=== PATIENT | male | born 1985 | race Caucasian/White ===

== ENCOUNTER 2017-11-20 18:49 | Emergency (ER) | payer MEDICAID, SELFPAY ==
[2017-11-20 18:50] VITALS: BP 132/42; PULSE 94; RESP 17; TEMP 36.8; O2SAT 98; BMI 30.1
--- NOTE | 2017-11-20 19:04 | ED.DCSUM_ITS ---
- ER Visit Summary Date of Service: 11/20/17 Chief Complaint: Dental pain History of Present Illness: The patient is a 32 M presents to the emergency department dental pain. Patient had the symptoms off and on for the past month. Over the past 2 days, symptoms worsened. He describes sharp stabbing pain in his left upper jaw. He states he has not seen a dentist in years. He has been taking ibuprofen with some improvement. He denies any fevers or chills. He denies any trauma. He does describe hot and cold sensitivity. Physical Examination: Vital signs reviewed General: Well-nourished, well-developed Head: Normocephalic, atraumatic Eyes: Pupils equal and reactive, extraocular muscles intact Neck, supple, no lymphadenopathy Dental: Patient has cavity of tooth 15. There is some erythema of the gumline. There is no focal abscess. No Xavi angina. No trismus or stridor. Submental space soft. Heart: Regular rate and rhythm Respiratory: No distress, clear bilaterally Abdomen: Soft, nontender, nondistended, no peritoneal signs Back: Nontender Extremities: Nontender, no edema, no cords Skin: Normal color no rash Neuro: Alert and oriented, no focal or lateralizing deficits Test Results: [] Emergency Department Course and Treatment: Patient has evidence of cavity of tooth 15. There is some mild erythema of the gumline. There is no focal abscess. He has no evidence of Xavi angina. I am going to treat the patient with penicillin. He is given outpatient dental resources. I did community health counselor him this is likely going to need formally addressed by dentistry. He will be discharged home. Treatment Plan: [] Disposition: Discharge Impression: Dental cavity with periapical abscess tooth 15 This note was generated with Dat[employer] dictation software. It may contain incorrect words, spelling, and punctuation that were not noted in review of the chart prior to signing ED Disposition - Plan for ED Patient: Chief Complaint: Dental Instructions: ED Cavity Dental Prescriptions: Naproxen [Naprosyn] 500 mg PO BID PRN #20 tab Penicillin V Potassium 500 mg PO 4X/DAY #40 tab Referrals: Sera Noguera MD [Primary Care Provider] -
== END 2017-11-20 19:21 | disposition home or self-care (01) ==
LOC: ED 19:16
PROVIDERS: Emergency Provider Emergency Medicine; Family Provider Family Medicine; PCP Family Medicine
DX: K04.7 Periapical abscess without sinus (principal); K02.9 Dental caries, unspecified; Z72.0 Tobacco use
CPT/HCPCS: 99282

== ENCOUNTER 2017-12-22 10:03 | Emergency (ER) | payer MEDICAID, SELFPAY ==
[2017-12-22 10:04] VITALS: BP 116/42; PULSE 86; RESP 14; TEMP 36.4; O2SAT 100; BMI 29.7
[2017-12-22] MEDS: Naproxen 500 MG Tablet PO (10:21)
--- NOTE | 2017-12-22 10:38 | RAD_ITS ---
STUDY: X-RAY - BILATERAL RIBS REASON FOR EXAM: Male, 32 years old. Injury to left ribs with pain for a few days. TECHNIQUE: 7 view(s) of the ribs. COMPARISON: Chest x-ray dated March 08, 2016 FINDINGS: Normal visualized ribs without a demonstrated fracture. The visualized lungs are clear and expanded. Normal heart, mediastinum and pulmonary mundo. RAD/Ribs Bilat 3V No CXR IMPRESSION: No significant abnormality identified. If the patient remains symptomatic, a repeat rib study in 7-10 days may show healing fractures that are not seen on the initial study. Electronically Signed: Willian Culp MD at 11:16 EDT , Service support ,
--- NOTE | 2017-12-22 11:06 | ED.DCSUM_ITS ---
- ER Visit Summary Date of Service: 12/22/17 Chief Complaint: Left rib pain History of Present Illness: The patient is a 32 M who states he was working on a car when he was holding onto something heavy and it slipped and he leaned forward and the left side of his chest hit his car. He complains of pain in the left rib area. Is worse with breathing and coughing. Denies any other symptoms. He tried ibuprofen at home without any relief. Physical Examination: Vital signs reviewed. HEENT exam unremarkable. Heart is regular rate and rhythm. Lungs clear to auscultation. He has chest tenderness in left anterior axillary line in the upper chest. Abdomen is soft and nontender. Neurologic exam normal Test Results: Chest x-ray reveals no acute findings Emergency Department Course and Treatment: Patient appears to have a contusion to the chest wall. He will be treated with naproxen here at home. He will ice the area and will follow up with his PCP Treatment Plan: [] Disposition: Discharge Impression: Left chest wall contusion This note was generated with [employer] dictation software. It may contain incorrect words, spelling, and punctuation that were not noted in review of the chart prior to signing ED Disposition - Plan for ED Patient: Chief Complaint: Chest Other Referrals: Sera Noguera MD [Primary Care Provider] -
--- NOTE | 2017-12-22 11:18 | ED.DEP ---
ED Disposition - Plan for ED Patient: Disposition: Home or Assisted Living Chief Complaint: Chest Other Instructions: ED Contusion Chest Wall Prescriptions: Naproxen [Naprosyn] 500 mg PO BID PRN #20 tab Referrals: Sera Noguera MD [Primary Care Provider] -
[2017-12-22 12:09] VITALS: BP 118/73; PULSE 68; RESP 17
== END 2017-12-22 12:09 | disposition home or self-care (01) ==
PROVIDERS: Emergency Provider Emergency Medicine; Family Provider Family Medicine; PCP Family Medicine
DX: S20.212A Contusion of left front wall of thorax, initial encounter (principal); W22.8XXA Striking against or struck by other objects, initial encounter; Y93.9 Activity, unspecified; Y92.9 Unspecified place or not applicable; Y99.9 Unspecified external cause status; J45.909 Unspecified asthma, uncomplicated; Z72.0 Tobacco use
CPT/HCPCS: 71110; 99283

== ENCOUNTER 2017-12-30 13:59 | Emergency (ER) | payer MEDICAID, SELFPAY ==
[2017-12-30 14:03] VITALS: BP 119/83; PULSE 79; RESP 16; TEMP 37.1; O2SAT 99; BMI 29.9
--- NOTE | 2017-12-30 16:16 | ED.RN ---
pt was called at 1540 to be taken back to a room. pt was no longer here. Called again at 1617 still not here.
== END 2017-12-30 15:40 | disposition left against medical advice (07) ==
LOC: ED 16:52
PROVIDERS: Emergency Provider Emergency Medicine; Family Provider Family Medicine; PCP Family Medicine
DX: K08.89 Other specified disorders of teeth and supporting structures (principal)

== ENCOUNTER 2022-09-08 07:55 | Emergency (ER) | payer SELFPAY ==
[2022-09-08 07:55] VITALS: BP 146/100; PULSE 116; RESP 14; TEMP 36.2; BMI 30.5
[2022-09-08] MEDS: Oxymetazoline 0.05% 1 SPRAY SPRAY.BTL 2 SPRAY NASAL (08:29)
--- NOTE | 2022-09-08 08:34 | EX.ED.DYSGE1 ---
HPI History of Present Illness Chief Complaint: Nosebleed Narrative Narrative: 37-year-old male presenting with epistaxis from the left nares. Patient states he woke up with this. Patient denies any trauma externally or internally. He states he has not stuck anything in his nose or snorted anything. Patient states he has a history of nosebleeds when he was a kid but has not had this recently. Patient is not on any blood thinners. PFSH PFSH Medical History no medical history Home Medications naproxen 500 mg tablet 500 mg PO BID PRN #20 tabs 12/22/17 [Rx Last Taken Unknown] Allergy/AdvReac Type Severity Reaction Status Date / Time No Known Allergies Allergy Verified 09/08/22 07:55 Surgical History no surgical history Social History Smoking Status: Current every day smoker tobacco type: cigarettes ROS ROS ED Constitutional Constitutional ED: Denies chills, fever(s) or sweats Eyes Eyes: Denies blurry vision or change in vision ENT ENT ED: Reports other Details: Epistaxis ; Denies ear pain or sore throat Cardiovascular Cardiovascular: Denies chest pain, palpitations or racing heartbeat Respiratory/Chest Respiratory/Chest: Denies cough, dyspnea or sputum Gastrointestinal Gastrointestinal: Denies abdominal pain, constipation, diarrhea, nausea or vomiting Genitourinary Genitourinary ED: Denies dysuria, hematuria or urinary frequency Musculoskeletal Musculoskeletal: Denies arthralgias, myalgias or neck pain Integumentary Denies abscess, Abrasions or rash Neurologic Neurologic: Denies headache(s), paresthesias or weakness Psychiatric Psychiatric: Denies anxiety, depression, suicidal ideation or suicidal thoughts Endocrine Endocrinology: Denies polydipsia or polyuria EXAM Physical Exam Const Vital Signs: 09/08/22 07:55 09/08/22 10:08 09/08/22 12:17 Temperature 97.1 F L Temperature Source Temporal Pulse Rate 116 H 81 Respiratory Rate 14 16 18 Blood Pressure 146/100 H 121/79 H Blood Pressure Mean 115 93 Pulse Ox 99 Oxygen Delivery Method Room Air 09/08/22 12:17 Temperature Temperature Source Pulse Rate Respiratory Rate 18 Blood Pressure Blood Pressure Mean Pulse Ox Oxygen Delivery Method Positive well nourished General Appearance ED: cyanotic HEENT Reports moist mucous membranes HEENT Narrative: Steady epistaxis from the left naris. No external trauma. Eyes PERRL and EOMs intact bilaterally General Eye ED: Negative for pale conjunctiva or scleral icterus Resp normal respiratory effort and clear to auscultation bilaterally Cardio regular rate and regular rhythm Neuro oriented x3 and CN's II-XII intact bilaterally MDM MDM MDM Narrative Medical decision making narrative: On review ofPatient presented with left-sided epistaxis. He has been bleeding like this and this will go over sleep. Denies any trauma. Denies snorting anything. Patient has distant history of epistaxis. It is difficult to examine him initially as he is a study trickle of blood from the left naris. I did have him blow all of the clots out of the left side and I did pack the left side with with a cottonball soaked in Afrin. We will let this settle for about 10 minutes and then reevaluate. Patient states that he has not had any significant bleeding relation. The cotton ball was pulled and a large clot was removed. There is a still a little bit of bleeding. Patient was repacked in a similar fashion with father's max. I still cannot obtain a good view with active bleeding. Will reevaluate. On reevaluation the normal was pulled and there was no active bleeding. I did watch the patient for about 5 minutes and he started to have active bleeding. I reevaluated him and I cannot see where he was bleeding from and I presume this is somewhat posterior. Patient was packed with a rapid Rhino and tolerated this well. We will monitor him for short time. If he does well he will be discharged home with follow-up with ENT. On reevaluation the patient is doing well. No active bleeding. He states is able to breathe out of right nare now. No blood in the posterior oropharynx. Impression: 1. epistaxis Lab Data Attestation: I reviewed the patient's lab results. Discharge Plan Triage Chief Complaint: Nosebleed ED Provider: Alvin Ospina Dx/Rx/DC Orders Instructions: Nosebleed Prescriptions: No Action naproxen 500 MG tablet 500 mg PO BID PRN Qty: 20 0RF Primary Care Provider: Care Physician,No Primary Referrals: Kavon Shearer MD [Med Staff - Courtesy Staff] - 3-5 Days Sera Noguera MD [Med Staff - [employer]] - Disposition Disposition: Home, Self Care
[2022-09-08 10:08] VITALS: BP 121/79; PULSE 81; RESP 16; O2SAT 99
[2022-09-08] MEDS: Mixture 30 ML Bottle 10 ML TOPICAL (10:30)
[2022-09-08] MEDS: Silver Nitrate (BKC) 1 EACH TOPICAL (12:05)
[2022-09-08 12:17] VITALS: RESP 18
== END 2022-09-08 12:47 | disposition home or self-care (01) ==
PROVIDERS: Emergency Provider Student in an Organized Health Care Education/Training Program; Visit Provider Student in an Organized Health Care Education/Training Program
DX: R04.0 Epistaxis (principal); F17.210 Nicotine dependence, cigarettes, uncomplicated; Z79.1 Long term (current) use of non-steroidal anti-inflammatories (NSAID)
CPT/HCPCS: 30905; 99282

== ENCOUNTER 2022-09-09 05:44 | Emergency (ER) | payer SELFPAY ==
[2022-09-09 05:45] VITALS: BP 144/85; PULSE 103; RESP 18; TEMP 36.1; O2SAT 97; BMI 28.7
--- NOTE | 2022-09-09 06:33 | EDS_ITS ---
HPI History of Present Illness Chief Complaint: Nosebleed Informant: patient and family Narrative Narrative: Sudden nosebleed right side prior to arrival. Patient seen yesterday in the ED for left-sided epistaxis. He went home with a packing he states he was doing fine was able to sleep. Today bleeding to the right side. He denies digital manipulation. Denies anticoagulants. Denies history of bleeding issues similar in the past. 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 Prior similar symptoms: Yes PFSH PFSH Home Medications NK 09/09/22 [History Last Taken Unknown] Allergy/AdvReac Type Severity Reaction Status Date / Time No Known Allergies Allergy Verified 09/09/22 05:49 Social History Smoking Status: Current every day smoker tobacco type: cigarettes ROS ROS ED Constitutional Constitutional ED: Denies chills, fever(s) or sweats Eyes Eyes: Denies change in vision ENT ENT ED: Reports other Details: Nosebleed ; Denies dysphagia or sore throat Cardiovascular Cardiovascular: Denies chest pain, leg edema, palpitations or racing heartbeat Respiratory/Chest Respiratory/Chest: Denies cough, dyspnea or dyspnea on exertion Gastrointestinal Gastrointestinal: Denies abdominal pain, diarrhea, nausea or vomiting Genitourinary Genitourinary ED: Denies dysuria, hematuria or urinary frequency Musculoskeletal Musculoskeletal: Denies back pain, extremity pain or neck pain Integumentary Denies rash or wounds Neurologic Neurologic: Denies headache(s), paresthesias or weakness EXAM Physical Exam Const Vital Signs: 09/09/22 05:45 Temperature 96.9 F L Temperature Source Temporal Pulse Rate 103 H Respiratory Rate 18 Blood Pressure 144/85 H Blood Pressure Mean 104 Pulse Ox 97 Oxygen Delivery Method Room Air Positive well nourished and well developed General Appearance ED: well developed and NAD HEENT Reports moist mucous membranes HEENT Narrative: Left nare: Merocel dressing was intact. Right nare: Nasal tampon placed by patient. This was removed, dried blood there is no active bleeding. No posterior pharyngeal active bleeding. normocephalic and atraumatic Eyes PERRL, EOMs intact bilaterally and conjunctivae normal General Eye ED: Yes normal appearance of both eyes Neck no lymphadenopathy and supple General: Negative for tenderness Chest Wall Chest: Negative for tenderness Resp normal respiratory effort and normal air movement Effort and Inspection: symmetric chest movement; Negative for respiratory distress Cardio regular rate, regular rhythm and no murmurs Peripheral Pulses: pulses 2+ throughout GI normal to inspection, nondistended, normoactive bowel sounds and non-tender Palpation: Negative for guarding or rebound tenderness present Back/Spine no CVA tenderness and no thoracic nor lumbar tenderness Extremity normal to inspection General Extremety ED: Negative for edema or tenderness General Extremity: Negative for edema Neuro oriented x3 and no sensory deficits noted Sensorium / Orientation: awake and alert Skin no rashes or lesions noted and no wounds MDM MDM MDM Narrative Medical decision making narrative: LobePatient recurrent epistaxis. No trauma for concerns for nasal fracture leading to this. We bleeding out to the right side concerns for more posterior bleed on the left side which is tracking to the right side. There is no active bleeding on the right side when evaluated. I remove the Merocel on the left side, initial clear nasal discharge however noted then slow blood on the left side. Clots were removed from the naris bilaterally. With concerns for left- sided bleed tracking to the right side. I placed 7.5 cm rapid Rhino to the left side with gentle pressure. Multiple reevaluations, initially after placement there was blood from the right side. He was continued monitoring there is no rebleeds on the right side. Work note provided this is concerns of going to work with of nasal packing. He is given follow-up with ENT again. Discussed no blowing of his nose which is dabbing as needed. Return precautions. All questions were answered. Discharge Plan Triage Chief Complaint: Nosebleed ED Provider: León Mcmullen Dx/Rx/DC Orders Clinical Impression: Left-sided epistaxis Instructions: ED Epistaxis (Adult) Prescriptions: No Action NK Primary Care Provider: Care Physician,No Primary Referrals: Kavon Shearer MD [Med Staff - Courtesy Staff] - 3-5 Days Care Physician,No Primary [Primary Care Provider] - Activity Restrictions/Additional Instructions: 7.5 cm rapid Rhino packing to left nare. No active bleeding on the right side. Likely bleeding trickling over to the right side from evaluation yesterday. Maintain for 3 days. Follow-up with ENT for removal and reevaluation. Return if any worsening symptoms. Disposition Disposition: Home, Self Care Discharge Date/Time: 09/09/22 07:01
== END 2022-09-09 07:01 | disposition home or self-care (01) ==
PROVIDERS: Emergency Provider Emergency Medicine; Visit Provider Emergency Medicine
DX: R04.0 Epistaxis (principal); F17.210 Nicotine dependence, cigarettes, uncomplicated
CPT/HCPCS: 30901; 99282

== ENCOUNTER 2022-11-01 14:29 | Emergency (ER) | payer SELFPAY ==
[2022-11-01 14:30] VITALS: BP 144/94; PULSE 108; RESP 16; TEMP 36.6; O2SAT 97; BMI 31.5
--- NOTE | 2022-11-01 14:37 | EKG12_ITS ---
Test Reason : CP Blood Pressure : / mmHG Vent. Rate : 103 BPM Atrial Rate : 103 BPM P-R Int : 156 ms QRS Dur : 092 ms QT Int : 336 ms P-R-T Axes : 060 083 045 degrees QTc Int : 440 ms Poor data quality, interpretation may be adversely affected Sinus tachycardia Incomplete right bundle branch block Borderline ECG Confirmed by ARMANDO PARKER, ASHLEY ([id number]), clinical editor ZAHRA CABRERA ([id number]) on 11/04/2022 12:32:55 P M Referred By: GAUDENCIO/RAVI Confirmed By:MANUEL ROBERTS MD
--- NOTE | 2022-11-01 16:27 | ED.RN ---
CALLED PT'S NAME TO ROOM, NO ANSWER. PT NOT IN DEPT.
== END 2022-11-01 16:00 | disposition left against medical advice (07) ==
LOC: ED 16:47
DX: R07.89 Other chest pain (principal); Z53.21 Procedure and treatment not carried out due to patient leaving prior to being seen by health care provider
CPT/HCPCS: 93005

== ENCOUNTER 2023-04-24 11:18 | Emergency (ER) | payer OTHER, SELFPAY ==
[2023-04-24 11:19] VITALS: BP 146/99; PULSE 108; RESP 18; TEMP 36.4; O2SAT 100
--- NOTE | 2023-04-24 12:40 | EKG12_ITS ---
Test Reason : CP Blood Pressure : / mmHG Vent. Rate : 106 BPM Atrial Rate : 106 BPM P-R Int : 168 ms QRS Dur : 082 ms QT Int : 322 ms P-R-T Axes : 057 084 045 degrees QTc Int : 427 ms Sinus tachycardia Otherwise normal ECG Confirmed by LINDA PARKER, CUONG ([id number]), health editor ZANDRA BALDWIN ([id number]) on 04/25/2023 12:07:23 PM Referred By: Confirmed By:CUONG MCKEON MD
--- NOTE | 2023-04-24 12:40 | ED.VIS.CHEST ---
HPI History of Present Illness Chief Complaint: Chest Pain Informant: patient Narrative Narrative: Intermittent sharp left-sided chest pain prior to arrival. No dyspnea nausea. No radicular symptoms. Denies recent illness or cough. He vapes. Mother had PR at the age of 58, 3 years ago. Denies recent travel surgeries or immobilizations. No history of PE or DVT. reports symptoms subsided currently. Prior Similar Symptoms: No CVD Risk Factors: Positive for Smoking; Negative for Hypertension, Diabetes, Hypercholesterolemia or Family History 1' </=55 PE Risk Factors: Negative for Recent Travel/Surgery, Recent Immobilization or Prior DVT or PE [facility] Home Medications NK 09/09/22 [History Last Taken Unknown] Allergy/AdvReac Type Severity Reaction Status Date / Time No Known Allergies Allergy Verified 04/24/23 11:19 Social History Smoking Status: Current every day smoker tobacco type: cigarettes ROS ROS ED Constitutional Constitutional ED: Denies chills, fever(s) or sweats Eyes Eyes: Denies change in vision ENT ENT ED: Denies dysphagia or sore throat Cardiovascular Cardiovascular: Reports chest pain; Denies leg edema, palpitations or racing heartbeat Respiratory/Chest Respiratory/Chest: Denies cough, dyspnea or dyspnea on exertion Gastrointestinal Gastrointestinal: Denies abdominal pain, diarrhea, nausea or vomiting Genitourinary Genitourinary ED: Denies dysuria, hematuria or urinary frequency Musculoskeletal Musculoskeletal: Denies back pain, extremity pain or neck pain Integumentary Denies rash or wounds Neurologic Neurologic: Denies headache(s), paresthesias or weakness EXAM Physical Exam Const Vital Signs: 04/24/23 11:19 04/24/23 12:40 04/24/23 12:40 Temperature 97.5 F L Temperature Source Temporal Pulse Rate 108 H Respiratory Rate 18 Respiratory Effort Normal Non-Labored Blood Pressure 146/99 H Blood Pressure Mean 114 Pulse Ox 100 Oxygen Delivery Method Room Air Room Air Positive well nourished and well developed General Appearance ED: well developed and NAD HEENT Reports moist mucous membranes normocephalic and atraumatic Eyes PERRL, EOMs intact bilaterally and conjunctivae normal General Eye ED: Yes normal appearance of both eyes Neck no lymphadenopathy and supple General: Negative for tenderness Chest Wall inspection of chest normal and palpation of chest normal Chest Narrative: No chest wall tenderness no rash. Chest: Negative for tenderness Resp normal respiratory effort and normal air movement Effort and Inspection: symmetric chest movement; Negative for respiratory distress Cardio regular rhythm and no murmurs Rate: tachycardic Peripheral Pulses: pulses 2+ throughout GI normal to inspection, nondistended, normoactive bowel sounds and non-tender Palpation: Negative for guarding or rebound tenderness present Back/Spine no CVA tenderness and no thoracic nor lumbar tenderness Extremity normal to inspection General Extremety ED: Negative for edema or tenderness General Extremity: Negative for edema Neuro oriented x3 and no sensory deficits noted Sensorium / Orientation: awake and alert Skin no rashes or lesions noted and no wounds Heart Score History: Slightly/Non-Suspicious ECG: Normal Age: </= 45 years Risk Factors: 1 or 2 Risk Factors Troponin: </= Normal Limit Score: 1 MDM MDM MDM Narrative Medical decision making narrative: Interventions / MDM: Differential diagnosis: Atypical chest pain Diagnosis considered but do not suspect: Pulmonary embolism high D-dimer negative. ACS however EKG and cardiac enzymes negative. My EKG interpretation: Sinus rate of 106, no ST or T wave changes. Imaging independently reviewed and interpreted by myself: 2 view chest x-ray: No acute process also by radiology. External documents reviewed: N/A Test considered but not ordered:N/A ED course: Patient chest pains prior to arrival sharp in nature. Cardiac work-up initiated EKG sinus tachycardia, low risk Wells criteria for PE. D-dimer was added. 1350: Initial troponin negative chest x-ray negative D-dimer negative. Two-view chest x-ray negative. Reevaluation symptoms this time. Tobacco cessation with the patient. Awaiting delta troponin with plan outpatient follow-up. 1520: Remains symptom-free awaiting repeat troponin resulted for disposition. Patient signed out to oncoming physician. Re-evaluation: stable Disposition discussed with patient/family/significant other: Patient and mother Case discussed with consulting clinician: N/A This note was generated with [employer] dictation software. It may contain incorrect words, spelling, and punctuation that were not noted in checking the note before signing. Lab Data Attestation: I reviewed the patient's lab results. Labs: Laboratory Results - last 24 hr 04/24/23 12:43 WBC 6.7 RBC 4.94 Hgb 15.2 Hct 42.7 MCV 86.4 MCH 30.8 MCHC 35.6 RDW Std Deviation 37.4 RDW Coeff of Adam 11.9 Plt Count 203 MPV 10.1 Immature Gran % (Auto) 0.200 Neut % (Auto) 70.2 H Lymph % (Auto) 19.2 Sharkey % (Auto) 6.3 Eos % (Auto) 3.2 Baso % (Auto) 0.9 Absolute Neuts (auto) 4.7 Absolute Lymphs (auto) 1.28 Nucleated RBC % 0 D-Dimer Quant (PE/DVT) < 0.27 L Sodium 138 Potassium 3.4 L Chloride 106 Carbon Dioxide 29.0 Anion Gap 3 L BUN 11 Creatinine 0.98 Est GFR (MDRD) Af Amer 109 Est GFR (MDRD) Non-Af 90 BUN/Creatinine Ratio 11.3 Glucose 100 Calcium 8.8 Troponin I High Sens 4 Radiography Diagnostic Testing: Clinical Impression(s) from Imaging Studies Chest X-Ray 04/24/23 13:00 IMPRESSION: Stable chest with no acute or active cardiopulmonary disease. Electronically Signed: Willian Culp MD at 13:22 EDT , Discharge Plan Triage Chief Complaint: Chest Pain ED Provider: León Mcmullen Dx/Rx/DC Orders Clinical Impression: Current every day vaping, Chest pain Instructions: ED Chest Pain, Uncertain Cause Prescriptions: No Action NK Primary Care Provider: Care Physician,No Primary Referrals: Care Physician,No Primary [Primary Care Provider] - Activity Restrictions/Additional Instructions: Your cardiac work-up negative. D-dimer negative. Chest x-ray negative. Tobacco cessation. Follow-up with your doctor for outpatient testing. Return for any worsening symptoms. Disposition Disposition: Home, Self Care
[2023-04-24 12:50] LABS: Absolute Lymphocyte Count 1.28 X10^3/uL (0.83-4.51); Absolute Neutrophil Count 4.7 X10^3/uL (2.0-7.7); Basophil# 0.06 X10^3/uL; Basophil% 0.9 % (0-1); Eosinophil# 0.21 X10^3/uL; Eosinophils% 3.2 % (0-5); Hematocrit 42.7 % (40-54); Hemoglobin 15.2 g/dL (13.0-16.5); Lymphocyte # 1.28 X10^3/ul (0.83-4.51); Lymphocyte % 19.2 % (19-41); Mean Corp Hgb Conc 35.6 g/dL (32-36); Mean Corpuscular Hgb 30.8 pg (27.0-32.0); Mean Corpuscular Volume 86.4 fL (80-94); Mean Platelet Vol. 10.1 fl (6.2-12.0); Monocyte# 0.42 X10^3/uL; Monocyte% 6.3 % (0-10); NRBC Flagged by Analyzer 0 % (0-5); Neutrophil # 4.67 X10^3/uL (2.7-7.7); Neutrophil % 70.2 % (47-70); Platelet Count 203 K/mm3 (150-450); RBC Distribution Width CV 11.9 % (11.6-14.6); RBC Distribution Width SD 37.4 fl (35.1-43.9); Red Blood Count 4.94 M/mm3 (4.6-6.2); White Blood Count 6.7 K/mm3 (4.4-11.0)
--- NOTE | 2023-04-24 13:00 | RAD_ITS ---
STUDY: X-RAY CHEST REASON FOR EXAM: Male, 37 years old. Chest pain. TECHNIQUE: Frontal and lateral views of the chest. COMPARISON: Chest dated December 22, 2017. FINDINGS: Stable hyperinflation with scattered healed parenchymal granulomatous calcifications. There is no demonstrated pleural abnormality. Normal size heart. Normal mediastinum and mundo. Normal visualized pulmonary arteries. Normal visualized aortic arch and descending thoracic aorta. Normal visualized thoracic spine. Normal visualized ribs, clavicles, and shoulders. No abnormality of the visualized soft tissue structures of the upper abdomen. RAD/Chest PA and Lateral IMPRESSION: Stable chest with no acute or active cardiopulmonary disease. Electronically Signed: Willian Culp MD at 13:22 EDT ,
[2023-04-24 13:08] LABS: D-Dimer Quantitative (DVT/PE) < 0.27 FEU/ug/m (0.27-0.49)
[2023-04-24 13:09] LABS: Anion Gap 3 (5-15); BUN 11 mg/dL (7-18); BUN/Creat Ratio 11.3 RATIO (10-20); Calcium,Total 8.8 mg/dL (8.5-10.1); Chloride 106 mmol/L (98-107); Creatinine, Serum 0.98 mg/dL (0.70-1.30); EST Glomerular Filtration Rate 90 mL/min (>60); Est Glom Filt Rate - Afr Amer 109 mL/min (>60); Glucose 100 mg/dL (74-106); Potassium 3.4 mmol/L (3.5-5.1); Sodium Level 138 mmol/L (136-145); Troponin-I HS (w/2H Reflex) 4 pg/mL (3.0-78.0)
[2023-04-24] MEDS: Aspirin 81 MG TAB.CHEW 324 MG PO (13:24)
[2023-04-24 14:47] LABS: Reflex Troponin-HS? (from REC) Y
[2023-04-24 15:40] LABS: Troponin-I HS 3 pg/mL (3.0-78.0)
[2023-04-24 15:44] VITALS: BP 102/77; PULSE 57; RESP 15; O2SAT 94
[2023-04-24 16:00] VITALS: BP 102/76; RESP 18
[2023-04-24 17:00] VITALS: RESP 18
== END 2023-04-24 17:21 | disposition home or self-care (01) ==
PROVIDERS: Emergency Provider Emergency Medicine; Visit Provider Emergency Medicine
DX: R07.9 Chest pain, unspecified (principal); F17.290 Nicotine dependence, other tobacco product, uncomplicated; F17.210 Nicotine dependence, cigarettes, uncomplicated
CPT/HCPCS: 71046; 80048; 84484; 85025; 85379; 93005; 99285; A4216

== ENCOUNTER 2024-08-24 12:31 | Emergency (ER) | payer OTHER, SELFPAY ==
[2024-08-24 12:32] VITALS: BP 124/86; PULSE 95; RESP 18; TEMP 36.6; O2SAT 96; BMI 33.8
--- NOTE | 2024-08-24 14:20 | RAD_ITS ---
HISTORY: Pain, fall. TECHNIQUE: XR Ribs Unilateral W/ PA Chest Min 3 Views. 5 views. COMPARISON: 04/24/2023. FINDINGS: CARDIOMEDIASTINAL BORDERS: Cardiac silhouette within normal limits in size. Mediastinal contour unremarkable. LUNGS: Radiographically clear. PLEURA: No pleural effusion or pneumothorax seen. OSSEOUS STRUCTURES: No acute displaced rib fracture identified. RAD/Ribs Uni Min 3V w/PA Chest IMPRESSION: No acute abnormality identified. Electronically Signed: July Price MD at 14:55 EST ,
[2024-08-24] MEDS: Ibuprofen 600 MG Tablet PO (14:27)
--- NOTE | 2024-08-24 14:40 | ED.VIS.FALL ---
HPI HPI - Fall History of Present Illness Chief Complaint: Fall Narrative Narrative: Chief complaint and HPI: Left rib pain. 39-year-old male with no significant past medical history presents for evaluation of left rib pain. Patient states several days ago he fell on his way to work. He states that he landed on his left side. He states that he had some left-sided rib pain but that it resolved. He states today he accidentally hit his left side again and the pain is back. He denies pain elsewhere. He has not taken any OTC medication for the pain. Review of systems: See HPI Medications: As listed on the chart Allergies: As listed on the chart PFSH: Per chart Vital signs: As listed on the chart. Reviewed. Physical exam: Gen: A&O x3, NAD Head: Normocephalic, atraumatic Eyes: No sclera icterus, conjunctiva clear, PERRL, EOMI ENT: Moist mucous membranes Neck: Trachea midline, Nontender, full range of motion CV: RRR, no murmurs, tender to palpation of the mid lateral left rib cage-no signs of infection or trauma Resp: Lungs CTA BL, no w/r/c Musc: Full ROM, no deformity, no spinal TTP, no olga step-offs Skin: Warm, dry, intact Neuro: Alert, oriented, grossly intact, sensation intact Psych: Cooperative, appropriate mood and affect [facility] Home Medications ?Medication ?Instructions ?Recorded ?Last Taken ?Type NK 09/09/22 Unknown History Allergy/AdvReac Type Severity Reaction Status Date / Time No Known Allergies Allergy Verified 08/24/24 12:32 Social History Smoking Status: Current every day smoker tobacco type: cigarettes EXAM Physical Exam Const Vital Signs: 08/24/24 12:32 08/24/24 12:55 Temperature 97.9 F Temperature Source Temporal Pulse Rate 95 Respiratory Rate 18 Respiratory Effort Normal Blood Pressure 124/86 H Blood Pressure Mean 98 Pulse Ox 96 Oxygen Delivery Method Room Air Room Air MDM MDM MDM Narrative Medical decision making narrative: 39-year-old male with no significant past medical history presents for evaluation of left rib pain. Differential diagnosis includes but is not limited to chest contusion, rib fracture. Patient offered Toradol versus Motrin. He drove today therefore narcotics not given. Patient elected for Motrin, this was given. Chest x-ray as well as x-ray of the left ribs obtained. Chest x-ray/left ribs was interpreted by me, ED physician. No fracture or dislocation. Patient's pain is likely secondary to a left chest wall contusion. Motrin and Tylenol as needed for pain. Follow-up with PCP. He confirmed understand the plan. Patient stable to discharge home. Impression: 1. Left chest wall contusion 2. Mechanical fall Radiography Diagnostic Testing: Clinical Impression(s) from Imaging Studies Ribs w/Chest X-Ray 08/24/24 14:20 IMPRESSION: No acute abnormality identified. Electronically Signed: July Price MD at 14:55 EST , Discharge Plan Triage Chief Complaint: Fall ED Provider: Uriel Pringle Dx/Rx/DC Orders Clinical Impression: Chest wall contusion Instructions: ED Chest Wall Contusion Prescriptions: No Action NK Primary Care Provider: Ruth Villagomez Referrals: Ruth Villagomez MD [Primary Care Provider] - 3-5 Days Activity Restrictions/Additional Instructions: Ibuprofen and Tylenol as needed for pain. He did receive ibuprofen here in the emergency department so no ibuprofen for at least 4 hours. Follow-up with primary care physician. Print Language: Palestinian Disposition Disposition: Home, Self Care
== END 2024-08-24 15:05 | disposition home or self-care (01) ==
PROVIDERS: Emergency Provider Surgery; PCP Internal Medicine; Visit Provider Surgery
DX: S20.212A Contusion of left front wall of thorax, initial encounter (principal); W19.XXXA Unspecified fall, initial encounter; F17.210 Nicotine dependence, cigarettes, uncomplicated
CPT/HCPCS: 71101; 99282